=== PATIENT | male | born 1990 | race Caucasian/White ===

== ENCOUNTER 2017-03-08 16:53 | Emergency (ER) | payer BC ==
[2017-03-08 16:59] VITALS: BP 131/75
--- NOTE | 2017-03-08 17:07 | UC ---
Bite Injury/Animal HPI - HPI Summary HPI Summary: 26 YEAR OLD MALE PRESENTS WITH COMPLAINS OF BAT EXPOSURE. - History of Current Complaint Chief Complaint: UCBiteInjury Stated Complaint: BAT EXPOSURE Time Seen by Provider: 03/08/17 17:05 - Allergies/Home Medications Allergies/Adverse Reactions: Allergies Allergy/AdvReac Type Severity Reaction Status Date / Time Amoxicillin Allergy Mild Rash Verified 05/20/16 07:21 Home Medications: Home Medications Omeprazole CAP* [Prilosec CAP* 20 MG] 20 mg PO DAILY PRN 03/08/17 [History Confirmed 03/08/17] PMH/Surg Hx/FS Hx/Imm Hx Other History Of: Negative For: HIV, Hepatitis B, Hepatitis C, Anticoagulant Therapy - Surgical History Surgical History: Yes Surgery Procedure, Year, and Place: RIGHT ACL. Sinus surgery - Family History Known Family History: Negative: Cardiac Disease, Hypertension - Social History Alcohol Use: Occasionally Substance Use Type: Marijuana Substance Use Comment - Amount & Last Used: Occasionally Smoking Status (MU): Never Smoked Tobacco Review of Systems Constitutional: Negative Skin: Negative Eyes: Negative ENT: Negative Respiratory: Negative Cardiovascular: Negative Gastrointestinal: Negative Genitourinary: Negative Motor: Negative Neurovascular: Negative Musculoskeletal: Negative Neurological: Negative Psychological: Negative All Other Systems Reviewed And Are Negative: Yes Physical Exam Triage Information Reviewed: Yes Vital Signs: Initial Vital Signs Temp 36.7 C 03/08/17 16:57 Pulse 78 03/08/17 16:57 Resp 14 03/08/17 16:57 BP 131/75 03/08/17 16:57 Pulse Ox 99 03/08/17 16:57 Eye Exam: Normal ENT Exam: Normal Dental Exam: Normal Neck exam: Normal Neck: Positive: 1 Respiratory Exam: Normal Cardiovascular Exam: Normal Abdominal Exam: Normal Musculoskeletal Exam: Normal Neurological Exam: Normal Psychological Exam: Normal Skin Exam: Normal Bite Injury Course/Dx - Differential Dx/Diagnosis Provider Diagnoses: RABIES EXPOSURE Discharge - Discharge Plan Condition: Stable Disposition: HOME Patient Education Materials: Animal Bite (ED), Rabies (ED) Referrals: No Primary Care Phys,NOPCP [Primary Care Provider] -
[2017-03-08] MEDS ORDERED: Rabies Immune Globulin 10 ML* 150 UNIT/ML VIAL ONE (18:41)
[2017-03-08] MEDS ORDERED: Rabies Vaccine, PCEC INJ* 1 ml ONE (18:41)
[2017-03-08] MEDS ORDERED: Rabies Immune Globulin 2 ML* 150 UNITS/ML VIAL ONE (18:41)
== END 2017-03-08 19:17 | disposition home or self-care (01) ==
LOC: UCEAST 16:53
DX: Z29.14 Encounter for prophylactic rabies immune globulin (principal)
CPT/HCPCS: 90375; 90471; 90675; 96372; 99211; G0463

== ENCOUNTER 2018-04-06 11:47 | Emergency (ER) | payer BC, OTHER ==
[2018-04-06 12:27] VITALS: BP 111/70
--- NOTE | 2018-04-06 12:51 | UC ---
Complaint Male HPI - HPI Summary HPI Summary: This is scribe Lola Mendez documenting for attending Dr. Asher MD. The patient is a 27 year old male with a chief complaint of frequent urination and mild dysuria, as well as a dull ache in his RLQ that started on 04/02/18, but has been more constant over the last two days. Associated sx: mild nausea and diarrhea. The patient reports no injury to the area, no new sexual partners, no fever, no vomiting, no bowel or scrotum pain, no lumps or bumps. It does not hurt to move around, and nothing really makes it worse or better. PMHx: anxiety. He has no diabetes or HTN in family, his mother has thyroid problem, he has had surgery on knee and sinus yrs ago. No tobacco use, drinks about once a week. 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 I, Dr. Sterling, personally performed the services described in this documentation as scribed in my presence and it is both accurate and complete. - History of Current Complaint Chief Complaint: UCGU Stated Complaint: ABD PAIN Time Seen by Provider: 04/06/18 12:43 Hx Obtained From: Patient Onset/Duration: Sudden Onset, Lasting Days - Since 04/02/18, Still Present Timing: Constant, Lasting Days Severity Initially: Mild Severity Currently: Mild Pain Intensity: 1 Pain Scale Used: 0-10 Numeric Location: Other - RLQ and upon urinating Aggravating Factor(s): Nothing Alleviating Factor(s): Nothing Associated Signs And Symptoms: Positive: Negative - no bowel or scrotum pain, no lumps or bumps,, Dysuria, Nausea - mild. Negative: Fever, Vomiting(# Of Episodes =), Penile Discharge - Allergies/Home Medications Allergies/Adverse Reactions: Allergies Allergy/AdvReac Type Severity Reaction Status Date / Time amoxicillin Allergy Rash Verified 04/06/18 12:27 Home Medications: Home Medications Citalopram TAB* [CeleXA TAB*] 10 mg PO DAILY 04/06/18 [History Confirmed ] PMH/Surg Hx/FS Hx/Imm Hx Previously Healthy: Yes Cardiovascular History: Other Other Cardiovascular History: neg: CHF Psychological History: Anxiety Other History Of: Negative For: HIV, Hepatitis B, Hepatitis C, Anticoagulant Therapy - Surgical History Surgical History: Yes Surgery Procedure, Year, and Place: RIGHT ACL. Sinus surgery - Family History Known Family History: Positive: Other - mother - thyroid problem Negative: Cardiac Disease, Hypertension, Diabetes - Social History Occupation: Employed Full-time Lives: With Family Alcohol Use: Occasionally Substance Use Type: Marijuana Substance Use Comment - Amount & Last Used: Occasionally Smoking Status (MU): Never Smoked Tobacco Review of Systems Constitutional: Negative - fever Gastrointestinal: Negative - bowel pain, vomiting, Diarrhea - mild, Nausea - mild Genitourinary: Negative - penile discharge, lumps/bumps, scrotum pain, Dysuria, Frequency All Other Systems Reviewed And Are Negative: Yes Physical Exam - Summary Physical Exam Summary: Appearance: Well appearing, no pain distress Skin: warm, dry, reflects adequate perfusion Head/face: normal Eyes: EOMI, JOSE DAVID ENT: normal Neck: supple, non-tender Respiratory: CTA, breath sounds present Cardiovascular: RRR, pulses symmetrical Abdomen: non-tender, soft, negative McBurney's point and negative [place] Bowel Sounds: present Musculoskeletal: normal, strength/ROM intact, no CVA or lumbar tenderness Neuro: normal, sensory motor intact, A&Ox3 : No hernias, no epididymal tenderness, no external lesions, no lymphadenopathy in groin Triage Information Reviewed: Yes Vital Signs: Initial Vital Signs Temp 98.2 F 04/06/18 12:22 Pulse 54 04/06/18 12:22 Resp 14 04/06/18 12:22 BP 111/70 04/06/18 12:22 Pulse Ox 99 04/06/18 12:22 Vital Signs Reviewed: Yes UC Physical Exam Vital Signs On Initial Exam: Initial Vitals Temp Pulse Resp BP Pulse Ox 98.2 F 54 14 111/70 99 04/06/18 12:22 04/06/18 12:22 04/06/18 12:22 04/06/18 12:22 04/06/18 12:22 Diagnostics - Laboratory Diagnostic Studies Completed/Ordered: UA - normal results. Complaint Male Course/Dx - Course Course Of Treatment: Patient with mild intermittent low abdominal pain and some urinary frequency. Urinalysis is normal. His abdomen is soft and benign. He has no strong risk factor for STI. Has been riding his bike frequently which may be causative. There is no blood in the urine however. At this point there is no indication for imaging or even lab work given no fever or pain. GC/ chlamydia testing was obtained. Ibuprofen as needed now. Follow-up with primary care physician in [place] area. Return precautions given. - Differential Dx/Diagnosis Provider Diagnoses: 1. Intermittent bilateral lower abd pain. Discharge - Sign-Out/Discharge Documenting (check all that apply): Patient Departure - Discharge Plan Condition: Improved Disposition: HOME Patient Education Materials: Acute Abdominal Pain (DC) Referrals: [facility] [Outside] Additional Instructions: Follow-up in the next several days with your doctor in [place]. Return to ER with fever, worsening pain in the right lower abdomen, worse or other concerns as discussed. Stay well-hydrated, ibuprofen as needed for discomfort. - Billing Disposition and Condition Condition: IMPROVED Disposition: Home Lab Results - Lab Results Lab Results: 04/06/18 12:58 POC Urine Color Yellow POC Urine Clarity Clear POC Urine pH 6.0 POC Ur Specif [place] 1.025 POC Urine Protein Negative POC Ur Glucose (UA) Negative POC Urine Ketones Negative POC Urine Blood Negative POC Urine Nitrite Negative POC Urine Bilirubin Negative POC Urine Urobilinogen 0.2 POC U Leukocyte Esteras Negative
== END 2018-04-06 13:25 | disposition home or self-care (01) ==
LOC: UCEAST 11:47
DX: R10.32 Left lower quadrant pain (principal); R10.31 Right lower quadrant pain; R11.0 Nausea; R19.7 Diarrhea, unspecified; F41.9 Anxiety disorder, unspecified; Z88.0 Allergy status to penicillin
CPT/HCPCS: 81003; 87491; 87591; 99211; G0463